=== PATIENT | male | born 1945 | race Caucasian/White ===

== ENCOUNTER 2017-08-19 07:16 | Day surgery (SDC) | payer OTHER ==
[~2017-08-19] VITALS: Ht 177.8 cm; Wt 122.0 kg
[~2017-08-19 07:16] MED LIST: ADULT LOW DOSE81 M1 PO; ASTEPRO 0.15%30 ML BOTH NARES; Atarax,Vistaril PO; Coumadin,Jantoven PO; FISH OIL 1,2001 EAC4 PO; Glucophage PO; LEVOTHYROXINE300 MCG PO; LEVOXYL150 MCG PO; LEVOXYL200 MCG; LIPITOR80 MG; LIPITOR80 MG PO; LISINOPRIL20 MG; LISINOPRIL20 MG PO; LO-DOSE ASPIRIN81 M1 PO; Levothroid,Synthroid PO; Lipitor PO; METFORMIN HCL500 MG; METFORMIN HCL500 MG PO; MULTI VITAMIN1 EACH PO; Percocet 5/325,Endoc PO; TRAMADOL HCL50 MG PO; VITAMIN D31000 UNIT PO; Zestril,Prinivil PO
== END 2017-08-19 09:18 | disposition home or self-care (01) ==
LOC: PAIN 07:16 → SDC 08:00 → PAIN 08:00
PROVIDERS: Anesthesiology Pain Medicine
PROC: BR161ZZ Fluoroscopy of Lumbar Facet Joint(s) using Low Osmolar Contrast (ICD-10-PCS; principal; 2017-08-19)
PROC: 3E0T3TZ Introduction of Destructive Agent into Peripheral Nerves and Plexi, Percutaneous Approach (ICD-10-PCS; principal; 2017-08-19)
DX: M47.816 Spondylosis without myelopathy or radiculopathy, lumbar region (principal); M48.061 Spinal stenosis, lumbar region without neurogenic claudication; M54.16 Radiculopathy, lumbar region; E03.9 Hypothyroidism, unspecified; E78.5 Hyperlipidemia, unspecified; E11.51 Type 2 diabetes mellitus with diabetic peripheral angiopathy without gangrene; I10 Essential (primary) hypertension; E66.9 Obesity, unspecified; Z68.37 Body mass index [BMI] 37.0-37.9, adult; Z79.82 Long term (current) use of aspirin; Z79.84 Long term (current) use of oral hypoglycemic drugs
CPT/HCPCS: 82948; J1030; J2250; S0020

== ENCOUNTER 2017-10-30 10:58 | Inpatient (IN) | payer OTHER ==
[~2017-10-30] VITALS: Ht 177.8 cm; Wt 118.0 kg
[2017-10-30] MEDS ORDERED: VITAMIN E1000 UNIT PO (11:36)
[2017-10-30] MEDS ORDERED: TYLENOL EXTRA500 MG PO (11:39)
[2017-10-30 11:50] VITALS: BP 147/65
[2017-10-30 17:10] VITALS: BP 141/62
[2017-10-30 19:12] VITALS: BP 163/71
== END 2017-10-30 20:24 | disposition home or self-care (01) | DRG 520 ==
LOC: SDC 10:58 → CANRESERV 14:26 → ENRESERV 15:19 → 2SOUTH 15:35 → 2EAST 17:05
PROVIDERS: Neurological Surgery
DX: M48.062 Spinal stenosis, lumbar region with neurogenic claudication (principal); E66.01 Morbid (severe) obesity due to excess calories; M41.80 Other forms of scoliosis, site unspecified; I05.9 Rheumatic mitral valve disease, unspecified; M17.10 Unilateral primary osteoarthritis, unspecified knee; E11.9 Type 2 diabetes mellitus without complications; M51.36 Other intervertebral disc degeneration, lumbar region; Z68.37 Body mass index [BMI] 37.0-37.9, adult
CPT/HCPCS: 72020; 76000; 82948; J0330; J0690; J1100; J2250; J2405; J2710; J2930; J3010; J3370; J3480; J7643; S0020